=== PATIENT | female | born 1950 | race Caucasian/White ===

== ENCOUNTER 2021-02-18 15:01 | Emergency (ER) | payer OTHER ==
--- OUTSIDE RECORDS SUMMARY | 2021-02-18 15:07 | XMS REPORT | Continuity of Care Document ---
:1950 Author Organization [facility] t Address [address] [place] [address] Care Team Providers Name Role Phone Adams_R Attending Clinician Unavailable GAYLORD_S Attending Clinician Unavailable Eitan_R Admitting Clinician Unavailable GAYLORD_S Admitting Clinician Unavailable Payers Payer Name Policy Type Policy Number Effective Date Expiration Date [facility] [id number] 2020 (MEDICARE 00:00:00 REPLACEMENT HMO) Problems This patient has no known problems. Allergies, Adverse Reactions, Alerts This patient has no known allergies or adverse reactions. Medications Ordered Filled Start Stop Current Ordering Indication Dosage Frequency Signature Comments Components Source Medication Medication Date Date Medication? Clinician (SIG) Name Name Enalapril Enalapril 2020-0 Yes Makeda [address] [facility] Crestor Crestor 2019-0 Yes Makeda [address] 4[facility] in evening [facility] Procedures This patient has no known procedures. Encounters Start End Encounter Admission Attending Care Care Encounter Source Date/Time Date/Time Type Type Clinicians Facility Department ID 2021-02-11 Outpatient Adams_R [facility] [id number] [id number] 2021-02-06 Outpatient ELIANA_S JERR[facility] BLUNT [id number] [id number] 2021-02-04 Outpatient [facility] [id number] [facility] 2021-02-05 2021-02-05 ambulatory [facility] [id number] [facility] 2021-01-16 2021-01-16 Outpatient [facility] [id number] [facility] 2021-01-15 2021-01-15 Outpatient [facility] [id number] [facility] 2020-02-09 2020-02-09 Outpatient [facility] [id number] [facility] 2020-01-10 2020-01-10 Outpatient [facility] [id number] [facility] 2019-12-30 2019-12-30 Outpatient [facility] [id number] [facility] 2019-08-23 2019-08-23 [facility] [id number] [facility] 13[facility]35[facility]00 13:35[facility]00 [facility] 2019-08-23 2019-08-23 [facility] [id number] [facility] 08:50:00 08:50:00 [facility] 2019-07-19 2019-07-19 [facility] [id number] [facility] 10:54:00 10:54:00 [facility] 2019-07-19 2019-07-19 [facility] [id number] [facility] 09:30:00 09:30:00 [facility] 2019-06-04 2019-06-04 [facility] [id number] [facility] 14[facility]25:00 14:25:[address] [facility] ent Clinics 2019-04-15 2019-04-15 [place] [place] [id number] [facility] 14:45:00 14:45:[address] [facility] ent [facility] 2019-02-16 2019-02-16 [facility] [place] [id number] [facility] 16:00:00 16:00:[address] [facility] ent Clinics Results This patient has no known results.
[2021-02-18 16:43] LABS: SARS-COV-2 RT PCR NEGATIVE (NEGATIVE)
--- NOTE | 2021-02-18 17:06 | RAD REPORT ---
EXAM DESCRIPTION: RAD - Chest Pa And Lat (2 Views) - 02/18/2021 4:07 pm CLINICAL HISTORY: Cough;Congestion Chest pain. COMPARISON: No comparisons FINDINGS: Mildly elevated right hemidiaphragm is noted. Small calcified granuloma seen in the right mid lung laterally. Interstitial lung markings are mildly prominent suggesting mild viral infection. The heart is normal in size.
--- NOTE | 2021-02-18 17:27 | ER ---
Nurse's Notes [facility] Name: Amalia Mendez Age: 70 yrs Sex: Female : 1950 Arrival Date: 02/18/2021 Time: 15:02 Bed 12 Private MD: Diagnosis: Acute bronchitis, unspecified Presentation: 02/18 15:24 Chief complaint: Patient states: cough and sinus congestion since last Friday , has iw been using her albuterol but can;t get rid of it. Risk Assessment: Do you want to hurt yourself or someone else? Patient reports no desire to harm self or others. 15:24 Method Of Arrival: Ambulatory iw 15:26 Coronavirus screen: congestion, cough unrelated to allergies. Ebola Screen: Patient iw negative for fever greater than or equal to 101.5 degrees Fahrenheit, and additional compatible Ebola Virus Disease symptoms Patient denies exposure to infectious person. Patient denies travel to an Ebola-affected area in the 21 days before illness onset. No symptoms or risks identified at this time. Initial Sepsis Screen: Does the patient meet any 2 criteria? No. Patient's initial sepsis screen is negative. Does the patient have a suspected source of infection? No. Patient's initial sepsis screen is negative. Onset of symptoms was February 11, 2021. 15:26 Acuity: MARTITA 3 iw Triage Assessment: 17:40 General: Appears in no apparent distress. Behavior is calm, cooperative. iw Historical: - Allergies: 15:24 No Known Allergies; iw - PMHx: 15:25 Congestive heart failure; PE; Hypertensive disorder; iw - PSHx: 15:26 hysterectomy; Cholecystectomy; shoulder; iw - Immunization history:: Client reports receiving the 2nd dose of the Covid vaccine. - Social history:: Smoking status: Patient/guardian denies using tobacco, the patient reports quitting approximately 1 years ago. Screenin:48 Abuse screen: Denies threats or abuse. Denies injuries from another. Nutritional iw screening: No deficits noted. Tuberculosis screening: No symptoms or risk factors identified. Fall Risk None identified. Assessment: 17:00 General: Appears in no apparent distress. Behavior is calm, cooperative. Pain: Denies iw pain. Neuro: Level of Consciousness is awake, alert, obeys commands, Oriented to person, place, time, situation, Cardiovascular: Patient's skin is warm and dry. Respiratory: Respiratory effort is even, unlabored, Respiratory pattern is regular, symmetrical. Respiratory: Reports cough that is non-productive, dry. Derm: Skin is intact, is healthy with good turgor. Musculoskeletal: Range of motion: intact in all extremities. Vital Signs: 15:25 Resp 18; Temp 98.3(TE); iw 15:27 BP 154 / 77; Pulse 67; Resp 18 S; Pulse Ox 94% on R/A; Weight 153.77 kg; Height 5 ft. 6 iw in. (167.64 cm); 15:27 Body Mass Index 54.72 (153.77 kg, 167.64 cm) iw ED Course: 15:02 Patient arrived in ED. ja2 15:26 Triage completed. iw 15:26 Meka Moss FNP-C is [facility]. kb 15:26 Chris Evangelista MD is Attending Physician. kb 15:27 Arm band placed on. iw 15:30 Patient has correct armband on for positive identification. iw 16:07 Chest Pa And Lat (2 Views) XRAY In Process Unspecified. EDMS 16:28 Rita Miller, RN is Primary Nurse. iw 17:48 No provider procedures requiring assistance completed. Patient did not have IV access iw during this emergency room visit. Administered Medications: 17:48 Drug: Tessalon Perle (benzonatate) 100 mg Route: PO; iw 18:00 Follow up: Response: No adverse reaction iw 17:48 Drug: predniSONE 40 mg Route: PO; iw 18:00 Follow up: Response: No adverse reaction iw Outcome: 17:26 Discharge ordered by MD. kb 17:48 Discharged to home ambulatory. iw 17:48 Condition: good 17:48 Discharge instructions given to patient, Instructed on discharge instructions, follow up and referral plans. medication usage, Demonstrated understanding of instructions, follow-up care, medications, Prescriptions given X 2. 17:49 Patient left the ED. iw Signatures: Dispatcher [employer] EDMS Meka Moss FNP-C FNP-Ckb Williams, Irene, RN RN Ramonita Okeefe
--- NOTE | 2021-02-18 17:27 | EDPHYS ---
Physician Documentation [facility] Name: Amalia Mendez Age: 70 yrs Sex: Female : 1950 Arrival Date: 02/18/2021 Time: 15:02 Bed 12 Private MD: ED Physician Chris Evangelista HPI: 02/18 17:28 This 70 yrs old Female presents to ER via Ambulatory with complaints of Cough. kb 17:28 The patient or guardian reports cough, that is intermittent, described as mild. Onset: kb The symptoms/episode began/occurred 6 day(s) ago. Severity of symptoms: At their worst the symptoms were mild, moderate, in the emergency department the symptoms are unchanged. Modifying factors: The symptoms are alleviated by nothing, the symptoms are aggravated by nothing. Associated signs and symptoms: Pertinent positives: rhinorrhea, Pertinent negatives: chest pain, diarrhea, ear ache, fever, nausea, sore throat, vomiting. The patient has not experienced similar symptoms in the past. The patient has not recently seen a physician. Pt reports cough and congestion for 6 days. Denies fever. . Historical: - Allergies: 15:24 No Known Allergies; iw - PMHx: 15:25 Congestive heart failure; PE; Hypertensive disorder; iw - PSHx: 15:26 hysterectomy; Cholecystectomy; shoulder; iw - Immunization history:: Client reports receiving the 2nd dose of the Covid vaccine. - Social history:: Smoking status: Patient/guardian denies using tobacco, the patient reports quitting approximately 1 years ago. ROS: 17:28 Constitutional: Negative for fever, chills, and weight loss. kb 17:28 ENT: Positive for rhinorrhea, sinus congestion. 17:28 Respiratory: Positive for cough, Negative for dyspnea on exertion, hemoptysis, orthopnea, pleurisy, shortness of breath, sputum production, wheezing. 17:28 All other systems are negative. Exam: 17:28 Constitutional: This is a well developed, well nourished patient who is awake, alert, kb and in no acute distress. Head/Face: Normocephalic, atraumatic. ENT: Moist Mucous membranes Cardiovascular: Regular rate and rhythm with a normal S1 and S2. No gallops, murmurs, or rubs. No pulse deficits. Respiratory: Respirations even and unlabored. No increased work of breathing, no retractions or nasal flaring. Skin: Warm, dry with normal turgor. Normal color. MS/ Extremity: Pulses equal, no cyanosis. Neurovascular intact. Full, normal range of motion. Neuro: Awake and alert, GCS 15, oriented to person, place, time, and situation. Moves all extremities. Normal gait. Psych: Awake, alert, with orientation to person, place and time. Behavior, mood, and affect are within normal limits. Vital Signs: 15:25 Resp 18; Temp 98.3(TE); iw 15:27 BP 154 / 77; Pulse 67; Resp 18 S; Pulse Ox 94% on R/A; Weight 153.77 kg; Height 5 ft. 6 iw in. (167.64 cm); 15:27 Body Mass Index 54.72 (153.77 kg, 167.64 cm) iw MDM: 15:27 Patient medically screened. kb 17:24 Data reviewed: vital signs, nurses notes. Data interpreted: Pulse oximetry: on room air kb is 94 %. Interpretation: normal. Counseling: I had a detailed discussion with the patient and/or guardian regarding: the historical points, exam findings, and any diagnostic results supporting the discharge/admit diagnosis, lab results, radiology results, the need for outpatient follow up, a family practitioner, to return to the emergency department if symptoms worsen or persist or if there are any questions or concerns that arise at home. 02/18 15:28 Order name: COVID-19/FLU A+B (Document "Date of Onset" if Symptomatic) kb 02/18 15:28 Order name: COVID-19/FLU A+B; Complete Time: 16:48 EDMS 02/18 15:28 Order name: Chest Pa And Lat (2 Views) XRAY; Complete Time: 17:09 kb Administered Medications: 17:48 Drug: Tessalon Perle (benzonatate) 100 mg Route: PO; iw 18:00 Follow up: Response: No adverse reaction iw 17:48 Drug: predniSONE 40 mg Route: PO; iw 18:00 Follow up: Response: No adverse reaction iw Disposition: 02/19 09:20 Co-signature as Attending Physician, Chris Evangelista MD I agree with the assessment and sp3 plan of care. Disposition Summary: 02/18/21 17:26 Discharge Ordered Location: Home kb Condition: Stable kb Diagnosis - Acute bronchitis, unspecified kb Followup: kb - With: Emergency Department - When: As needed - Reason: Worsening of condition Followup: kb - With: Private Physician - When: 2 - 3 days - Reason: Recheck today's complaints, Continuance of care, Re-evaluation by your physician Discharge Instructions: - Discharge Summary Sheet kb - Acute Bronchitis, Adult, [id number] kb Forms: - Medication Reconciliation Form kb - Thank You Letter kb - Antibiotic Education kb - Prescription Opioid Use kb Prescriptions: - Prednisone 20 mg Oral Tablet - take 1 tablet by ORAL route once daily for 5 days; 5 tablet; Refills: 0, kb Product Selection Permitted - Tessalon Perles 100 mg Oral Capsule - take 1 capsule by ORAL route every 8 hours As needed; 15 capsule; Refills: 0, kb Product Selection Permitted Signatures: Dispatcher [employer] Meka Mckeon, Rita Sanchez RN RN iw Chris Evangelista MD MD sp3 Corrections: (The following items were deleted from the chart) 02/18 17:24 17:24 Counseling: I had a detailed discussion with the patient and/or guardian kb regarding: the historical points, exam findings, and any diagnostic results supporting the discharge/admit diagnosis, lab results, the need for outpatient follow up, a family practitioner, to return to the emergency department if symptoms worsen or persist or if there are any questions or concerns that arise at home, kb
[2021-02-18] MEDS ORDERED: predniSONE 20 MG TAB ONE (17:40)
[2021-02-18] MEDS ORDERED: BENZONATATE 100 MG CAP PO ONE (17:40)
[2021-02-18 17:53] VITALS: TEMP 98.3
[2021-02-18 17:55] VITALS: BP 154/77; O2SAT 94
== END 2021-02-18 17:49 | disposition home or self-care (01) ==
LOC: ER 15:01
DX: J20.9 Acute bronchitis, unspecified (principal); I50.9 Heart failure, unspecified; I10 Essential (primary) hypertension; Z20.822 Contact with and (suspected) exposure to COVID-19
CPT/HCPCS: 0240U; 71046; 99283; J7512